=== PATIENT | female | born 1955 | race Caucasian/White ===

== ENCOUNTER → 2017-07-17 | Outpatient (CLI) | payer BC ==
--- NOTE | 2017-07-17 14:29 | RAD ---
Examination: Chest with abdomen series History: Abdominal pain, diverticulitis Findings: PA upright chest demonstrates normal heart size, tortuous aorta, clear lungs and pleural sp aces. In the abdomen, supine and erect views were obtained. Intestinal gas pattern is normal and nono bstructive. No free air, ascites, mass formation or pathologic calcification noted. Impression: No acute chest or abdominal process demonstrated. Reported By:
== END ==
LOC: RAD 11:55
PROVIDERS: ATTEND Obstetrics & Gynecology Obstetrics
DX: R10.84 Generalized abdominal pain (principal)
CPT/HCPCS: 74022

== ENCOUNTER → 2017-07-30 | Outpatient (CLI) | payer BC ==
--- NOTE | 2017-07-30 15:14 | US ---
HISTORY: Enlarging bilateral breast nodules Study: Bilateral breast ultrasound Comparison: July 09, 2017 Technique: Multiple grayscale and color Doppler images of both breasts were obtained. Findings: Sonographic evaluation of the regions of interest was performed from 12-2 o'clock on the right and at 12 o'clock on the left where there are numerous horizontally oriented macro lobulated but smoothly m arginated and well circumscribed predominantly anechoic cyst with posterior acoustical enhancement an d no internal Doppler flow with the largest dominant cyst located at 12 o'clock on the left approxima tely 2 cm from the nipple measuring 2.6 cm and with the largest cyst on the right located at 2 o'cloc k approximately 1 cm from the nipple measuring 2.4 cm in maximum dimension. There is scattered trace internal debris without a peripheral nodular component. No suspicious cystic or solid nodules are see n to warrant biopsy. IMPRESSION: Numerous bilateral simple and minimally complex parenchymal cysts without sonographic evidence of mal ignancy. BI-RADS 2. Benign findings. Yearly mammographic imaging is recommended. * 0 (ZERO) - ASSESSMENT INCOMPLETE; ADDITIONAL IMAGING IS NEEDED. * 1/1 (ONE) - NEGATIVE. * 2/II (TWO) - BENIGN FINDINGS. * 3/III (THREE) - PROBABLY BENIGN FINDING; SHORT INTERVAL FOLLOW-UP SUGGESTED. * 4/IV (FOUR) - SUSPICIOUS ABNORMALITY; BIOPSY SHOULD BE CONSIDERED. * 5/V (FIVE) - HIGHLY SUSPICIOUS OF MALIGNANCY; BIOPSY SHOULD BE PERFORMED. * 6/ (SIX) - KNOWN MALIGNANCY. A NEGATIVE X-RAY REPORT SHOULD NOT DELAY BIOPSY IF A DOMINANT OR CLINICALLY SUSPICIOUS MASS IS PRESENT; 4 TO 8 PERCENT OF CANCERS ARE NOT IDENTIFIED BY X-RAY. A NEGA TIVE REPORT MAY REINFORCE THE CLINICAL IMPRESSION. ADENOSIS AND DENSE BREASTS MAY OBSCURE AN UNDERLY ING NEOPLASM. Reported By:
== END ==
LOC: RAD 14:10
PROVIDERS: ATTEND Obstetrics & Gynecology Obstetrics
DX: R92.8 Other abnormal and inconclusive findings on diagnostic imaging of breast (principal)
CPT/HCPCS: 76642